=== PATIENT | male | born 1975 | race Caucasian/White ===

== ENCOUNTER 2018-12-23 16:06 | Emergency (ER) | payer OTHER ==
[~2018-12-23] VITALS: Ht 180.3 cm; Wt 104.5 kg
[2018-12-23 16:19] VITALS: Ht 180.3 cm; Wt 104.5 kg
[2018-12-23] MEDS ORDERED: TOPROL XL50 MG PO (16:21)
[2018-12-23] MEDS ORDERED: SYNTHROID88 MCG PO (16:21)
[2018-12-23] MEDS ORDERED: HYDROCHLOROTH12.5 M1 PO (16:21)
[2018-12-23] MEDS ORDERED: LIPITOR10 MG (16:22)
[2018-12-23] MEDS ORDERED: CYCLOBENZAPRINE10 MG PO (17:50)
[2018-12-23] MEDS ORDERED: ATARAX 25 MG TA25 MG PO (17:50)
[2018-12-23 18:19] VITALS: BP 140/79
== END 2018-12-23 18:21 | disposition home or self-care (01) ==
LOC: D.ER 16:06
DX: M47.896 Other spondylosis, lumbar region (principal); M54.5 Low back pain